=== PATIENT | male | born 1995 | race Asian ===

== ENCOUNTER 2018-03-15 14:24 | Emergency (ER) | payer OTHER ==
[2018-03-15 14:37] VITALS: BP 124/77
[2018-03-15] MEDS ORDERED: predniSONE 20 MG TABLET PO STA (16:05)
[2018-03-15] MEDS ORDERED: cephALEXin 250 MG CAPSULE PO STA (16:06)
--- NOTE | 2018-03-15 16:12 | ED Physician Documentation ---
History of Present Illness - Stated complaint Stated Complaint: L ARM SWELLING/POSS BUG BITE - Chief complaint Chief Complaint: Wound - History obtained from History obtained from: Patient - History of Present Illness Timing: Last night Pain level max: 2 Pain level now: 2 Improved by: nothing Worsened by: nothing - Additonal information Additional information: Patient is a 22-year-old male who presents to the emergency department with swelling to the left forearm since last night. States started as a small reddened area that looked like a bug bite, but is now enlarged in size. Mild pain. No fever. Has surrounding it has not taken anything for this. There is itching present. Review of Systems Constitutional: denies: Fever, Chills Respiratory: denies: Cough GI: denies: Nausea, Vomiting PD PAST MEDICAL HISTORY - Past Medical History Past Medical History: No - Past Surgical History Past Surgical History: No - Present Medications Home Medications: Ambulatory Orders Medication Instructions Recorded Confirmed Cephalexin [Keflex] 500 mg PO Q6H #28 capsule 03/15/18 predniSONE [Prednisone] 40 mg PO DAILY #6 tablet 03/15/18 - Family History Family history: reports: Non contributory - Immunizations Immunizations are current?: Yes Immunizations: TDAP current <10years - POLST Patient has POLST: No PD ED PE NORMAL - Vitals Vital signs reviewed: Yes - General General: Alert and oriented X 3 - HEENT HEENT: Moist mucous membranes - Neck Neck: Supple, no meningeal sign - Derm Derm: Warm and dry - Extremities Extremities: Other (L forearm - swelling, redness to the mid forearm. no fluctuance. blanches easily.) - Neuro Neuro: Alert and oriented X 3 Results - Vitals Vitals: Vital Signs - 24 hr 03/15/18 14:31 Temperature 36.2 C L Heart Rate 50 L Respiratory 16 Rate Blood Pressure 124/77 O2 Saturation 97 Oxygen O2 Source Room air PD MEDICAL DECISION MAKING - ED course Complexity details: considered differential, d/w patient ED course: Patient is a 22-year-old male who presents to the emergency department with possible localized allergic reaction versus cellulitis of left forearm. Will place on antibiotics and steroids and see how he progresses. I think this is more likely allergic, but we will cover for infection as well. Tetanus is up-to -date. No evidence of abscess. Does not use any IV or subcutaneous drugs. Patient counseled regarding signs and symptoms for which I believe and urgent re -evaluation would be necessary. Patient with good understanding of and agreement to plan and is comfortable going home at this time This document was made in part using voice recognition software. While efforts are made to proofread this document, sound alike and grammatical errors may occur. - Sepsis Event Vital Signs: Vital Signs - 24 hr 03/15/18 14:31 Temperature 36.2 C L Heart Rate 50 L Respiratory 16 Rate Blood Pressure 124/77 O2 Saturation 97 Oxygen O2 Source Room air Departure - Departure Disposition: 01 Home, Self Care Clinical Impression: Allergic reaction Qualifiers: Encounter type: initial encounter Qualified Code(s): T78.40XA - Allergy, unspecified, initial encounter Cellulitis Qualifiers: Site of cellulitis: extremity Site of cellulitis of extremity: upper extremity Laterality: left Qualified Code(s): L03.114 - Cellulitis of left upper limb Condition: Good Instructions: ED Infec Skin Cellulitis, ED Bite Sting Insect Local Allergic React Follow-Up: your,doctor in 3 days for wound check [Other] Prescriptions: Cephalexin [Keflex] 500 mg PO Q6H #28 capsule predniSONE [Prednisone] 40 mg PO DAILY #6 tablet Comments: It is unclear if this represents an infection versus an allergic reaction to a bite. We will treat it with steroids and antibiotics. Return if you worsen. This should improve over the next 24 hours. Discharge Date/Time: 03/15/18 16:18
== END 2018-03-15 16:18 | disposition home or self-care (01) ==
LOC: ED 14:24
DX: T78.40XA Allergy, unspecified, initial encounter (principal); X58.XXXA Exposure to other specified factors, initial encounter; L03.114 Cellulitis of left upper limb
CPT/HCPCS: 99283; A9270; J7512

== ENCOUNTER 2018-06-20 15:32 | Emergency (ER) | payer OTHER ==
[2018-06-20] MEDS ORDERED: ONDANSETRON 4 MG/2 ML VIAL IVP STA (15:58)
[2018-06-20] MEDS ORDERED: SODIUM CHLORIDE 0.9% 1,000 ML IV ONE ×2 (15:58→16:56)
[2018-06-20 16:20] LABS: BASOPHILS % (AUTO) 0.7 %; EOSINOPHILS # (AUTO) 0.4 10^3/uL (0.0-0.7); EOSINOPHILS % (AUTO) 5.4 %; HGB - HEMOGLOBIN 15.7 g/dL (14.0-18.0); LYMPHOCYTES % (AUTO) 30.5 %; MEAN CORPUSCULAR HGB CONC 33.8 g/dL (32.0-36.0); MEAN CORPUSCULAR VOLUME 85.7 fL (80.0-94.0); MEAN PLATELET VOLUME 9.4 fL (7.4-11.4); MONOCYTES # (AUTO) 0.4 10^3/uL (0.0-1.0); MONOCYTES % (AUTO) 5.7 %; NEUTROPHILS # (AUTO) 3.7 10^3/uL (1.5-6.6); NEUTROPHILS % (AUTO) 57.7 %; PLT - PLATELET COUNT 206 10^3/uL (130-450); RED BLOOD COUNT 5.41 10^6/uL (4.70-6.10); RED CELL DISTRIBUTION WIDTH 13.6 % (12.0-15.0); WHITE BLOOD COUNT 6.5 x10^3/uL (4.8-10.8)
[2018-06-20 16:33] LABS: ALBUMIN 4.6 g/dL (3.2-5.5); ALBUMIN/GLOBULIN RATIO 1.6 (1.0-2.2); BILIRUBIN,TOTAL 0.8 mg/dL (0.2-1.0); CALCIUM 9.2 mg/dL (8.5-10.3); CREATININE 0.9 mg/dL (0.6-1.2); TOTAL PROTEIN 7.5 g/dL (6.7-8.2)
[2018-06-20] MEDS ORDERED: FAMOTIDINE 20 MG/50 ML 50 ML IV ONE (16:55)
[2018-06-20] MEDS ORDERED: MAG HYDROX/AL HYDROX/SIMETH 30 ML UDC PO STA ×2 (17:00→17:38)
[2018-06-20] MEDS ORDERED: LIDOCAINE VISCOUS 2% 15 ML UDC MM STA (17:01)
[2018-06-20 17:16] LABS: BILIRUBIN,URINE NEGATIVE (NEGATIVE); GLUCOSE, URINE (UA) NEGATIVE (NEGATIVE); KETONES,URINE (UA) NEGATIVE (NEGATIVE); LEUKOCYTE ESTERASE, URINE NEGATIVE (NEGATIVE); NITRITE,URINE NEGATIVE (NEGATIVE); OCCULT BLOOD,URINE NEGATIVE (NEGATIVE); PH,URINE 7.5 PH (5.0-7.5); PROTEIN,URINE NEGATIVE (NEGATIVE); UROBILINOGEN,URINE 0.2 (NORMAL) E.U./dL (NORMAL)
[2018-06-20 17:22] LABS: CLARITY,URINE CLEAR (CLEAR)
--- NOTE | 2018-06-20 18:10 | ED Physician Documentation ---
PD HPI ABD PAIN - Stated complaint Stated Complaint: AB PX/LIGHTHEADED/MALE - Chief complaint Chief Complaint: Abd Pain - History obtained from History obtained from: Patient - History of Present Illness Timing - onset: Yesterday Location: Epigastric, Periumbilical Associated symptoms: Nausea, Vomiting, Diarrhea. No: Fever Similar symptoms before: Has not had sx before Recently seen: Clinic (He was seen by her urologist 2 days ago and started on Bactrim and tamsulosin for suspected chronic prostatitis.) - Additional information Additional information: The patient is a 23-year-old male who presents with abdominal pain that started yesterday and is worse today. It is in the upper abdomen. He reports associated nausea and vomited soon after arrival in the emergency department. He has had 3 or 4 episodes of diarrhea since onset yesterday. He reports lightheadedness last night. He denies fever or dysuria. He had been referred to a urologist for evaluation of a varicocele. He was seen by the urologist 2 days ago, and was diagnosed with suspected chronic prostatitis for which he was started on Bactrim and tamsulosin. Review of Systems Constitutional: denies: Fever Nose: denies: Congestion Throat: denies: Sore throat Cardiac: denies: Chest pain / pressure Respiratory: denies: Dyspnea, Cough GI: reports: Abdominal Pain, Nausea, Vomiting, Diarrhea : denies: Dysuria Skin: denies: Rash Musculoskeletal: denies: Back pain Neurologic: denies: Headache PD PAST MEDICAL HISTORY - Past Medical History Past Medical History: No Cardiovascular: None Respiratory: None Endocrine/Autoimmune: None GI: None - Past Surgical History Past Surgical History: No - Present Medications Home Medications: Ambulatory Orders Medication Instructions Recorded Confirmed Promethazine [Phenergan] 25 - 50 mg PO Q6H PRN #10 tab 06/20/18 Tamsulosin [Flomax] 1 tab PO DAILY 06/20/18 06/20/18 raNITIdine [Zantac] 150 mg PO BID #30 tablet 06/20/18 - Allergies Allergies/Adverse Reactions: Allergies Allergy/AdvReac Type Severity Reaction Status Date / Time No Known Drug Allergies Allergy Verified 06/20/18 15:41 - Social History Does the pt smoke?: No Smoking Status: Never smoker Does the pt drink ETOH?: No Does the pt have substance abuse?: No - Immunizations Immunizations are current?: Yes Immunizations: TDAP current <10years - POLST Patient has POLST: No PD ED PE NORMAL - Vitals Vital signs reviewed: Yes (normal) - General General: Alert and oriented X 3, Well developed/nourished - HEENT HEENT: Atraumatic, Moist mucous membranes, Pharynx benign - Neck Neck: Supple, no meningeal sign, No adenopathy - Cardiac Cardiac: RRR, No murmur - Respiratory Respiratory: No respiratory distress, Clear bilaterally - Abdomen Abdomen: Soft, Non distended, No organomegaly, Other (Mild tenderness to palpation in the left upper quadrant and epigastric region, without rebound tenderness or guarding.) - Back Back: No CVA TTP - Derm Derm: No rash - Extremities Extremities: No edema, No calf tenderness / cord - Neuro Neuro: Alert and oriented X 3, No motor deficit, No sensory deficit Results - Vitals Vitals: Oxygen O2 Source Room air - Labs Labs: Laboratory Tests 06/20/18 06/20/18 06/20/18 16:04 16:04 16:50 WBC 6.5 RBC 5.41 Hgb 15.7 Hct 46.3 MCV 85.7 MCH 29.0 MCHC 33.8 RDW 13.6 Plt Count 206 MPV 9.4 Neut # (Auto) 3.7 Lymph # (Auto) 2.0 [place] # (Auto) 0.4 Eos # (Auto) 0.4 Baso # (Auto) 0.0 Absolute Nucleated RBC 0.01 Nucleated RBC % 0.1 Sodium 137 Potassium 3.5 Chloride 104 Carbon Dioxide 29 Anion Gap 4.0 L BUN 14 Creatinine 0.9 Estimated GFR (MDRD) 106 Glucose 88 Calcium 9.2 Total Bilirubin 0.8 AST 19 ALT 17 Alkaline Phosphatase 49 Total Protein 7.5 Albumin 4.6 Globulin 2.9 Albumin/Globulin Ratio 1.6 Lipase 34 Urine Color YELLOW Urine Clarity CLEAR Urine pH 7.5 Ur Specific [place] 1.015 Urine Protein NEGATIVE Urine Glucose (UA) NEGATIVE Urine Ketones NEGATIVE Urine Occult Blood NEGATIVE Urine Nitrite NEGATIVE Urine Bilirubin NEGATIVE Urine Urobilinogen 0.2 (NORMAL) Ur Leukocyte Esterase NEGATIVE Ur Microscopic Review NOT INDICATED Urine Culture Comments NOT INDICATED PD MEDICAL DECISION MAKING - ED course Complexity details: reviewed results, re-evaluated patient, considered differential, d/w patient ED course: The patient's presentation is most suggestive of peptic ulcer disease versus gastroenteritis. His CBC, chemistry panel, and urinalysis are negative. His presentation does not suggest pancreatitis, biliary colic, or an acute surgical abdomen. Treatment in the emergency department included administration of normal saline 2 L IV, Zofran 4 mg IV, GI cocktail orally, and famotidine 20 mg IV. His symptoms resolved with the above treatment, and reexamination reveals a benign abdomen. He is being discharged with a prescriptions for Ranitidine and for Phenergan. I discussed with him and his companions the diagnosis, symptomatic treatment and outpatient follow-up, as well as potentially worrisome signs or symptoms that should prompt reevaluation in the emergency department. - Sepsis Event Vital Signs: Oxygen O2 Source Room air Departure - Departure Disposition: Home, Self Care Clinical Impression: Gastritis Qualifiers: Gastritis type: unspecified gastritis Chronicity: acute Gastritis bleeding: without bleeding Qualified Code(s): K29.00 - Acute gastritis without bleeding Condition: Stable Instructions: ED PUD Vs Gastritis Follow-Up: ANALI BRIONES MD [Primary Care Provider] - Prescriptions: Promethazine [Phenergan] 25 - 50 mg PO Q6H PRN #10 tab PRN Reason: Nausea / Vomiting raNITIdine [Zantac] 150 mg PO BID #30 tablet Comments: Minimize coffee, mary, alcohol, and greasy or spicy foods. Take ranitidine twice daily as prescribed. You can use Phenergan as prescribed if needed for nausea. Follow up with your primary physician within 1-2 weeks. Call to schedule an appointment. Return to the emergency department if you develop increasing abdominal pain, persistent vomiting, or otherwise worsening symptoms. Discharge Date/Time: 06/20/18 18:22
[2018-06-20 18:20] VITALS: BP 120/78
== END 2018-06-20 18:22 | disposition home or self-care (01) ==
LOC: ED 15:32
DX: K29.00 Acute gastritis without bleeding (principal)
CPT/HCPCS: 36415; 80053; 81003; 83690; 85025; 96361; 96365; 96375; 99283; 99284; A9270; 81001; 87086

== ENCOUNTER 2021-05-08 10:15 | Emergency (ER) | payer OTHER ==
[2021-05-08 10:51] VITALS: BP 119/70
--- NOTE | 2021-05-08 11:40 | ED Physician Documentation ---
History of Present Illness - Stated complaint Stated Complaint: CONGESTION/COUGH - Chief complaint Chief Complaint: Heent - History obtained from History obtained from: Patient - Additonal information Additional information: Previously healthy 25-year-old gentleman has been sick for about 3 days with body aches, cough, runny nose, myalgias and fatigue. No measured fevers. Family is sick with similar symptoms. He is fully immunized against Covid. Review of Systems Ten Systems: 10 systems reviewed and negative Constitutional: reports: Chills, Myalgias, Fatigue Nose: reports: Rhinorrhea / runny nose Cardiac: denies: Chest pain / pressure, Palpitations Respiratory: reports: Cough. denies: Dyspnea PD PAST MEDICAL HISTORY - Past Medical History Cardiovascular: None Respiratory: None Endocrine/Autoimmune: None GI: None - Past Surgical History Past Surgical History: No - Present Medications Home Medications: Ambulatory Orders Medication Instructions Recorded Confirmed No Known Home Medications 05/08/21 05/08/21 - Allergies Allergies/Adverse Reactions: Allergies Allergy/AdvReac Type Severity Reaction Status Date / Time No Known Drug Allergies Allergy Verified 05/08/21 10:51 - Social History Does the pt smoke?: No Smoking Status: Never smoker Does the pt drink ETOH?: No Does the pt have substance abuse?: No - Immunizations Immunizations are current?: Yes Immunizations: TDAP current <10years - POLST Patient has POLST: No PD ED PE NORMAL - Vitals Vital signs reviewed: Yes - General General: Alert and oriented X 3, No acute distress - HEENT HEENT: Ears normal, Pharynx benign - Neck Neck: Supple, no meningeal sign, No bony TTP - Cardiac Cardiac: RRR, No murmur - Respiratory Respiratory: No respiratory distress, Clear bilaterally - Abdomen Abdomen: Non tender - Back Back: No CVA TTP, No spinal TTP - Extremities Extremities: No edema, No calf tenderness / cord - Neuro Neuro: Alert and oriented X 3, Normal speech Results - Vitals Vitals: Vital Signs - 24 hr 05/08/21 10:48 Temperature 36.9 C Heart Rate 73 Respiratory 16 Rate Blood Pressure 119/70 O2 Saturation 100 Oxygen O2 Source Room air PD MEDICAL DECISION MAKING - ED course ED course: 25-year-old gentleman presents with classic viral syndrome. No evidence of bacterial infection. No specific therapy is necessary but discussed with him that he would need to self quarantine until Covid testing is done to make sure that he does not have a breakthrough infection. Departure - Departure Disposition: 01 Home, Self Care Clinical Impression: Viral syndrome Condition: Good Record reviewed to determine appropriate education?: Yes Instructions: ED Viral Syndrome Comments: Tylenol and ibuprofen as needed for the aches and pains. Return for new or worsening symptoms. You have a Covid test pending. You need to self quarantine until the result is done and negative. Do not leave your house. Do not get near anybody. The results should be done in 48 to 72 hours. We will call with a positive result, the fastest way to get a negative result for confirmation though is to go to the hospital website at [email or web address], click on the my [employer] tab and sign up for the patient portal. If any friends or family get sick and would like to have a Covid test done, but do not have signs or symptoms that would necessitate being hospitalized, we encourage testing through our coronavirus swabbing station, call [phone] to schedule an appointment. Forms: Activity restrictions
== END 2021-05-08 11:52 | disposition home or self-care (01) ==
LOC: ED 10:15
DX: B34.9 Viral infection, unspecified (principal); Z20.822 Contact with and (suspected) exposure to COVID-19
CPT/HCPCS: 99282; 99283

== ENCOUNTER 2021-11-03 14:11 | Emergency (ER) | payer OTHER ==
[2021-11-03 14:35] LABS: BASOPHILS # (AUTO) 0.1 10^3/uL (0.0-0.1); EOSINOPHILS # (AUTO) 0.1 10^3/uL (0.0-0.7); EOSINOPHILS % (AUTO) 1.9 %; HCT - HEMATOCRIT 45.7 % (42.0-52.0); HGB - HEMOGLOBIN 15.4 g/dL (14.0-18.0); LYMPHOCYTES # (AUTO) 1.7 10^3/uL (1.5-3.5); LYMPHOCYTES % (AUTO) 29.8 %; MEAN CORPUSCULAR HEMOGLOBIN 28.8 pg (27.0-31.0); MEAN CORPUSCULAR HGB CONC 33.7 g/dL (32.0-36.0); MEAN CORPUSCULAR VOLUME 85.4 fL (80.0-94.0); MEAN PLATELET VOLUME 10.8 fL (7.4-11.4); MONOCYTES # (AUTO) 0.4 10^3/uL (0.0-1.0); MONOCYTES % (AUTO) 6.6 %; NEUTROPHILS # (AUTO) 3.5 10^3/uL (1.5-6.6); NEUTROPHILS % (AUTO) 60.5 %; PLT - PLATELET COUNT 207 10^3/uL (130-450); RED BLOOD COUNT 5.35 10^6/uL (4.70-6.10); RED CELL DISTRIBUTION WIDTH 13.3 % (12.0-15.0); WHITE BLOOD COUNT 5.7 x10^3/uL (4.8-10.8)
[2021-11-03 14:50] LABS: ALBUMIN 4.5 g/dL (3.2-5.5); ALBUMIN/GLOBULIN RATIO 1.7 (1.0-2.2); BILIRUBIN,TOTAL 0.7 mg/dL (0.2-1.0); CALCIUM 9.4 mg/dL (8.5-10.3); CREATININE 0.9 mg/dL (0.6-1.2); POTASSIUM 3.8 mmol/L (3.5-5.0); TOTAL PROTEIN 7.1 g/dL (6.7-8.2)
--- NOTE | 2021-11-03 15:10 | XRAY Report ---
PROCEDURE: Chest 1 View X-Ray INDICATIONS: Chest pain TECHNIQUE: One view of the chest was acquired. COMPARISON: None FINDINGS: Surgical changes and devices: None. Lungs and pleura: No pleural effusions or pneumothorax. Lungs are clear. Mediastinum: Mediastinal contours appear normal. Heart size is normal. Bones and chest wall: No suspicious bony lesions. Overlying soft tissues appear unremarkable. IMPRESSION: No acute cardiopulmonary disease process. Reviewed by: Jany Doran MD, PhD on 11/03/2021 3:08 PM [facility] [place] Approved by: Jany Doran MD, PhD on 11/03/2021 3:08 PM [facility] [place] Station ID: [id number]
--- NOTE | 2021-11-03 15:55 | ED Physician Documentation ---
PD HPI CHEST PAIN - Stated complaint Stated Complaint: CHEST PX/LIGHT HEADED - Chief complaint Chief Complaint: Cardiac - History obtained from History obtained from: Patient - Additional information Additional information: Previously healthy 26-year-old gentleman who is active in the [employer]. No family history of heart disease. He has chronic recurrent chest pain. He says for last 3 years or so maybe once a month he will have a day where it feels like someone sitting on his chest. There is no particular pattern to this. He has been worked up for a GI cause with upper and lower endoscopies which were noncontributory. There is no exertional component to this. Review of Systems Constitutional: reports: Reviewed and negative Ears: reports: Reviewed and negative Nose: reports: Reviewed and negative Throat: reports: Reviewed and negative Cardiac: reports: Reviewed and negative PD PAST MEDICAL HISTORY - Past Medical History Cardiovascular: None Respiratory: None Endocrine/Autoimmune: None GI: None - Past Surgical History Past Surgical History: No - Present Medications Home Medications: Ambulatory Orders Medication Instructions Recorded Confirmed No Known Home Medications 05/08/21 05/08/21 - Allergies Allergies/Adverse Reactions: Allergies Allergy/AdvReac Type Severity Reaction Status Date / Time No Known Drug Allergies Allergy Verified 05/08/21 10:51 - Social History Does the pt smoke?: No Smoking Status: Never smoker Does the pt drink ETOH?: No Does the pt have substance abuse?: No - Immunizations Immunizations are current?: Yes Immunizations: TDAP current <10years - POLST Patient has POLST: No PD ED PE NORMAL - Vitals Vital signs reviewed: Yes - General General: Alert and oriented X 3, No acute distress - HEENT HEENT: PERRL, EOMI - Neck Neck: Supple, no meningeal sign, No bony TTP - Cardiac Cardiac: RRR, No murmur, Other (Has mild pectus excavatum, nontender chest to though. He does state that it hurts if he stretches his shoulders backwards.) - Respiratory Respiratory: No respiratory distress, Clear bilaterally - Abdomen Abdomen: Non tender - Derm Derm: Normal color, Warm and dry - Neuro Neuro: Alert and oriented X 3, Normal speech Results - Vitals Vitals: Vital Signs - 24 hr 11/03/21 14:17 Temperature 36.3 C L Heart Rate 94 Respiratory 20 Rate Blood Pressure 128/77 O2 Saturation 100 Oxygen O2 Source Room air - EKG (time done) 1414 Rate: Rate (enter#) (98) Rhythm: NSR Mark Center: Normal Intervals: Normal [place] QRS: Normal Ischemia: Normal ST segments - Labs Labs: Laboratory Tests 11/03/21 11/03/21 11/03/21 14:30 14:30 14:30 WBC 5.7 RBC 5.35 Hgb 15.4 Hct 45.7 MCV 85.4 MCH 28.8 MCHC 33.7 RDW 13.3 Plt Count 207 MPV 10.8 Neut # (Auto) 3.5 Lymph # (Auto) 1.7 [place] # (Auto) 0.4 Eos # (Auto) 0.1 Baso # (Auto) 0.1 Absolute Nucleated RBC 0.00 Nucleated RBC % 0.0 Sodium 138 Potassium 3.8 Chloride 103 Carbon Dioxide 25 Anion Gap 10.0 BUN 14 Creatinine 0.9 Estimated GFR (MDRD) 103 Glucose 108 H Calcium 9.4 Total Bilirubin 0.7 AST 26 ALT 50 Alkaline Phosphatase 57 Troponin I High Sens 2.5 Total Protein 7.1 Albumin 4.5 Globulin 2.6 Albumin/Globulin Ratio 1.7 Lipase 29 PD MEDICAL DECISION MAKING - ED course ED course: Heart score 0, suspect this is chest wall pain perhaps related to mild pectus excavatum. Departure - Departure Disposition: 01 Home, Self Care Clinical Impression: Chest wall pain, Pectus excavatum Condition: Good Record reviewed to determine appropriate education?: Yes Instructions: ED Strain Chest Wall Comments: Ibuprofen as needed per package instructions for pain. Gentle stretching and heat as discussed. [place]
[2021-11-03 16:00] VITALS: BP 122/86
== END 2021-11-03 16:07 | disposition home or self-care (01) ==
LOC: ED 14:11
DX: R07.89 Other chest pain (principal); Q67.6 Pectus excavatum
CPT/HCPCS: 36415; 80053; 83690; 84484; 85025; 93005; 99282; 99284

== ENCOUNTER 2021-12-10 21:49 | Emergency (ER) | payer OTHER ==
[2021-12-10 22:03] VITALS: BP 120/79
[2021-12-10] MEDS ORDERED: PROPARACAINE 0.5% OPHTH DROPS 15 ML RIGHTEYE STA (22:15)
[2021-12-10] MEDS ORDERED: POLYMYXIN B/TRIMETH OPHTH DROPS RIGHTEYE STA (22:27)
[2021-12-10] MEDS ORDERED: HYDROcod/ACETAM 5/325 MG TABLET PO STA (22:28)
--- NOTE | 2021-12-10 22:30 | ED Physician Documentation ---
PD HPI OPHTHO - Stated complaint Stated Complaint: EYE PX - Chief complaint Chief Complaint: Heent - History obtained from History obtained from: Patient - History of Present Illness Location: Right Quality / character: Sharp Associated symptoms: Tearing, Photophobia Contributing factors: No: Exposed to conjunctivitis, UV light (welding etc), Chemical exposure, acid, Chemical exposure, base, Penetrating trauma - Additional information Additional information: Patient presenting for evaluation of the right a pain after accidentally hitting himself in the eye with a paperhanger assistant hook just prior to arrival. He does not wear contacts or glasses. His eye is now sensitive to the light and has been tearing.He did try irrigating his eye with water but this did not make it feel better.He denies pain elsewhere. Review of Systems Constitutional: denies: Fever Eyes: reports: Photophobia Ears: denies: Tinnitus/ringing Nose: denies: Congestion Throat: denies: Dental pain / toothache Cardiac: denies: Chest pain / pressure Respiratory: denies: Dyspnea GI: denies: Abdominal Pain Neurologic: denies: Headache PD PAST MEDICAL HISTORY - Past Medical History Cardiovascular: None Respiratory: None Endocrine/Autoimmune: None GI: None - Past Surgical History Past Surgical History: No - Present Medications Home Medications: Ambulatory Orders Medication Instructions Recorded Confirmed HYDROcod/ACETAM 5/325 [[place] 5/325] 1 tab PO Q6H PRN 2 Days #8 tablet 12/10/21 Polymyxin B/Trimeth Ophth Drop 1 drops RIGHTEYE Q6H 5 Days #1 12/10/21 [Polytrim Ophth Drops] bottle Quetiapine Fumarate [Seroquel] 50 mg PO DAILY 12/10/21 12/10/21 lamoTRIgine [Lamictal] 150 mg PO DAILY 12/10/21 12/10/21 - Allergies Allergies/Adverse Reactions: Allergies Allergy/AdvReac Type Severity Reaction Status Date / Time No Known Drug Allergies Allergy Verified 12/10/21 22:03 - Social History Does the pt smoke?: No Smoking Status: Never smoker Does the pt drink ETOH?: No Does the pt have substance abuse?: No - Immunizations Immunizations are current?: Yes Immunizations: TDAP current <10years - POLST Patient has POLST: No PD ED PE NORMAL - General General: Alert and oriented X 3, No acute distress, Well developed/nourished - HEENT HEENT: Atraumatic, PERRL, EOMI - Respiratory Respiratory: No respiratory distress - Derm Derm: Normal color - Neuro Neuro: Normal speech - Psych Psych: Normal mood, Normal affect PD ED PE EXPANDED - Eyes Eyes: PERRL, EOMI, Corneal abrasion, Fluorescein uptake (Area of linear uptake to 6 o'clock position of right cornea), Anterior chambers clear. No: Eyelid injury, Eyelid swelling, Eyelid erythema, Conj/sclera FB, Subconj hemorrhage, Corneal FB, Hyphema Results - Vitals Vitals: Vital Signs - 24 hr 12/10/21 21:55 Temperature 36.5 C Heart Rate 68 Respiratory 14 Rate Blood Pressure 120/79 O2 Saturation 99 Oxygen O2 Source Room air PD MEDICAL DECISION MAKING - ED course ED course: Patient presenting for evaluation of right eye pain. Visual acuity intact and no signs of globe rupture.No signs of preseptal or septal cellulitis. Exam demonstrates a linear corneal abrasion Which is consistent with the mechanism of injury. Pain medication and antibiotic drops were prescribed and patient was instructed to follow-up with an senior software engineer. He was also advised on return precautions. Departure - Departure Disposition: 01 Home, Self Care Clinical Impression: Corneal abrasion, right Qualifiers: Encounter type: initial encounter Qualified Code(s): S05.01XA - Injury of conjunctiva and corneal abrasion without foreign body, right eye, initial encounter Condition: Stable Instructions: ED Eye Injury Corneal Abrasion Prescriptions: HYDROcod/ACETAM 5/325 [[place] 5/325] 1 tab PO Q6H PRN 2 Days #8 tablet PRN Reason: Pain Polymyxin B/Trimeth Ophth Drop [Polytrim Ophth Drops] 1 drops RIGHTEYE Q6H 5 Days #1 bottle Comments: You have a scratch on your cornea. Please continue with antibiotic drops as prescribed.You may use the pain medication as needed Or [id number] Motrin or Tylenol. Please follow-up with eye doctor in 3 to 5 days.Return to emergency department with any worsening such as changes in vision, swelling, redness, abnormal discharge, worsening pain. Discharge Date/Time: 12/10/21 22:41
== END 2021-12-10 22:41 | disposition home or self-care (01) ==
LOC: ED 21:49
DX: S05.01XA Injury of conjunctiva and corneal abrasion without foreign body, right eye, initial encounter (principal); W20.8XXA Other cause of strike by thrown, projected or falling object, initial encounter
CPT/HCPCS: 99282; A9270; J3490

== ENCOUNTER 2022-01-09 20:31 | Emergency (ER) | payer OTHER ==
[2022-01-09] MEDS ORDERED: LIDOCAINE PATCH 5% TOP STA (21:32)
[2022-01-09 21:47] LABS: BASOPHILS # (AUTO) 0.1 10^3/uL (0.0-0.1); EOSINOPHILS # (AUTO) 0.4 10^3/uL (0.0-0.7); EOSINOPHILS % (AUTO) 6.3 %; HCT - HEMATOCRIT 47.3 % (42.0-52.0); LYMPHOCYTES # (AUTO) 1.9 10^3/uL (1.5-3.5); LYMPHOCYTES % (AUTO) 27.4 %; MEAN CORPUSCULAR HEMOGLOBIN 28.8 pg (27.0-31.0); MEAN CORPUSCULAR HGB CONC 33.8 g/dL (32.0-36.0); MEAN CORPUSCULAR VOLUME 85.2 fL (80.0-94.0); MEAN PLATELET VOLUME 10.8 fL (7.4-11.4); MONOCYTES # (AUTO) 0.5 10^3/uL (0.0-1.0); NEUTROPHILS % (AUTO) 58.2 %; PLT - PLATELET COUNT 232 10^3/uL (130-450); RED BLOOD COUNT 5.55 10^6/uL (4.70-6.10); RED CELL DISTRIBUTION WIDTH 13.4 % (12.0-15.0); WHITE BLOOD COUNT 6.9 x10^3/uL (4.8-10.8)
[2022-01-09 22:03] LABS: ALBUMIN 4.9 g/dL (3.2-5.5); ALBUMIN/GLOBULIN RATIO 1.8 (1.0-2.2); BILIRUBIN,TOTAL 0.5 mg/dL (0.2-1.0); CALCIUM 9.2 mg/dL (8.5-10.3); CREATININE 0.8 mg/dL (0.6-1.2); POTASSIUM 3.9 mmol/L (3.5-5.0); TOTAL PROTEIN 7.7 g/dL (6.7-8.2)
--- NOTE | 2022-01-09 22:44 | XRAY Report ---
PROCEDURE: Chest 1 View X-Ray INDICATIONS: L CP TECHNIQUE: One view of the chest was acquired. COMPARISON: 11/03/2021 FINDINGS: Surgical changes and devices: None. Lungs and pleura: No pleural effusions or pneumothorax. Lungs are clear. Mediastinum: Mediastinal contours appear normal. Heart size is normal. Bones and chest wall: No suspicious bony lesions. Overlying soft tissues appear unremarkable. IMPRESSION: 1. No acute cardiopulmonary disease. Reviewed by: Hammad Trevino MD on 01/09/2022 10:43 PM PDT Approved by: Hammad Trevino MD on 01/09/2022 10:43 PM PDT Station ID: [id number]
--- NOTE | 2022-01-09 22:58 | ED Physician Documentation ---
History of Present Illness - Stated complaint Stated Complaint: BODY PX/CHILLS - Chief complaint Chief Complaint: General - History obtained from History obtained from: Patient - Additonal information Additional information: Patient with no significant past medical history presenting for evaluation of left-sided chest pain at that has been present intermittently for 3 days been more constant since yesterday. Of last week reports having low back pain and his had arranged for him to have a massage. While laying supine on the massage table and having his shoulders rubbed he reported feeling Cold sensation over his chest.He says he has a sharp pain to the left lower ribs that feels like somebody is poking him. It is worse when he hunches over Or takes a deep breath. He denies a history of PE or DVT. No history of early coronary artery disease in the family.Denies history of dissection in the family.No recent travel or immobilization. He denies fever, headache, visual disturbances, abdominal pain, nausea, vomiting, diarrhea, numbness or tingling.He tried Motrin earlier for his pain without improvement. Review of Systems Constitutional: denies: Fever Nose: denies: Congestion Cardiac: reports: Chest pain / pressure. denies: Palpitations Respiratory: denies: Dyspnea, Cough GI: denies: Abdominal Pain, Nausea, Vomiting : denies: Dysuria Skin: denies: Rash Musculoskeletal: reports: Back pain (Low back pain, resolved). denies: Neck pain Neurologic: denies: Syncope, Headache PD PAST MEDICAL HISTORY - Past Medical History Past Medical History: Yes Cardiovascular: None Respiratory: None Neuro: None Endocrine/Autoimmune: None GI: None : None HEENT: None Psych: Bipolar disorder Musculoskeletal: None Derm: None - Past Surgical History Past Surgical History: No - Present Medications Home Medications: Ambulatory Orders Medication Instructions Recorded Confirmed HYDROcod/ACETAM 5/325 [[place] 5/325] 1 tab PO Q6H PRN 2 Days #8 tablet 12/10/21 Polymyxin B/Trimeth Ophth Drop 1 drops RIGHTEYE Q6H 5 Days #1 12/10/21 [Polytrim Ophth Drops] bottle Quetiapine Fumarate [Seroquel] 50 mg PO DAILY 12/10/21 12/10/21 lamoTRIgine [Lamictal] 150 mg PO DAILY 12/10/21 12/10/21 Ibuprofen [Motrin] 800 mg PO Q8H PRN #30 tablet 01/09/22 Lidocaine Patch 5% [Lidoderm Patch] 1 patch TOP DAILY PRN #10 patch 01/09/22 - Allergies Allergies/Adverse Reactions: Allergies Allergy/AdvReac Type Severity Reaction Status Date / Time No Known Drug Allergies Allergy Verified 01/09/22 20:47 - Social History Does the pt smoke?: No Smoking Status: Never smoker Does the pt drink ETOH?: No Does the pt have substance abuse?: No - Immunizations Immunizations are current?: Yes Immunizations: TDAP current <10years - POLST Patient has POLST: No PD ED PE NORMAL - General General: Alert and oriented X 3, No acute distress, Well developed/nourished - HEENT HEENT: Atraumatic, Moist mucous membranes - Neck Neck: Supple, no meningeal sign, No bony TTP - Cardiac Cardiac: RRR, No murmur, Strong equal pulses, Other (Left-sided chest wall tenderness to palpation with no crepitus, deformity or erythema) - Respiratory Respiratory: No respiratory distress, Clear bilaterally - Abdomen Abdomen: Normal bowel sounds, Soft, Non tender - Back Back: No CVA TTP, No spinal TTP - Derm Derm: Normal color, Warm and dry - Extremities Extremities: No deformity, No edema - Neuro Neuro: Alert and oriented X 3, No motor deficit, Normal speech - Psych Psych: Normal mood, Normal affect Results - Vitals Vitals: Vital Signs - 24 hr 01/09/22 01/09/22 01/09/22 20:43 21:08 22:43 Temperature 36.3 C L Heart Rate 90 95 71 Respiratory 17 25 H 19 Rate Blood Pressure 134/80 H 129/81 H 95/80 O2 Saturation 100 100 99 01/09/22 01/09/22 23:03 23:08 Temperature 36.4 C L Heart Rate 78 71 Respiratory 16 16 Rate Blood Pressure 113/77 115/68 O2 Saturation 98 99 Oxygen O2 Source Room air - EKG (time done) 2043 Rate: Rate (enter#) (88) Rhythm: NSR [place]: Normal Ischemia: No: ST elevation c/w ischemia Computer interpretation: Agree with computer - Labs Labs: Laboratory Tests 01/09/22 01/09/22 01/09/22 21:42 21:42 21:42 WBC 6.9 RBC 5.55 Hgb 16.0 Hct 47.3 MCV 85.2 MCH 28.8 MCHC 33.8 RDW 13.4 Plt Count 232 MPV 10.8 Neut # (Auto) 4.0 Lymph # (Auto) 1.9 [place] # (Auto) 0.5 Eos # (Auto) 0.4 Baso # (Auto) 0.1 Absolute Nucleated RBC 0.00 Nucleated RBC % 0.0 Sodium 139 Potassium 3.9 Chloride 101 Carbon Dioxide 27 Anion Gap 11.0 BUN 12 Creatinine 0.8 Estimated GFR (MDRD) 118 Glucose 93 Calcium 9.2 Total Bilirubin 0.5 AST 46 H ALT 101 H Alkaline Phosphatase 60 Troponin I High Sens < 2.3 L Total Protein 7.7 Albumin 4.9 Globulin 2.8 Albumin/Globulin Ratio 1.8 PD MEDICAL DECISION MAKING - ED course Complexity details: reviewed results, d/w patient ED course: Patient is a previously healthy 26-year-old male presenting for evaluation of left-sided chest pain. Vital signs are reassuring and based on his history he is PERC negative. Very low suspicion for ACS given his age and lack of risk factors. EKG without signs of acute ischemic changesAnd troponin is negative. Do not think he needs repeat troponin as his symptoms have been ongoing for more than half a day.Doubt aortic dissection. Chest x-ray is reassuring with no signs of pneumothorax.Symptoms are likely musculoskeletal in etiology given worsening with certain positions. Discussed supportive care with patient. He is aware of need for follow-up with his primary care doctor as well as aware of strict return precautions. Departure - Departure Disposition: 01 Home, Self Care Clinical Impression: Chest pain Condition: Stable Instructions: ED Chest Pain Atypical Unkn Cause Prescriptions: Lidocaine Patch 5% [Lidoderm Patch] 1 patch TOP DAILY PRN #10 patch PRN Reason: pain Ibuprofen [Motrin] 800 mg PO Q8H PRN #30 tablet PRN Reason: PAIN &/OR FEVER Comments: You were evaluated for pain in your chest. At this time the exact cause of your symptoms is unclear but does not appear to be life-threatening. Your blood tests including a marker to look for heart attack was normal. Your x-ray also did not show any abnormalities.Your EKG did not show an irregular rhythm. Your pain could be related to inflammation in the chest wall related to the muscles, Cartilage and ligaments. You can try Motrin as needed for pain and lidocaine patches. You should also have close follow-up with your primary care doctor. If your Symptoms change or worsen (such as Worsening chest pain or chest pain in a new area, and worsening trouble breathing) or you feel new symptoms, please return to the emergency department for another evaluation. Prescriptions for Motrin and lidocaine patches were sent to the [facility] pharmacy in [place]. Discharge Date/Time: 01/09/22 23:13
[2022-01-09 23:09] VITALS: BP 115/68
== END 2022-01-09 23:13 | disposition home or self-care (01) ==
LOC: ED 20:31
DX: R07.9 Chest pain, unspecified (principal)
CPT/HCPCS: 36415; 71045; 80053; 84484; 85025; 93005; 99284; A9270

== ENCOUNTER 2022-01-18 13:29 | Outpatient (CLI) | payer OTHER | END 2022-01-18 13:30 | disposition home or self-care (01) | LOC: RT 13:29 | DX: R07.9 Chest pain, unspecified (principal); Q67.6 Pectus excavatum | CPT/HCPCS: 94010; 94727; 94729 ==

== ENCOUNTER 2022-04-30 15:37 | Emergency (ER) | payer OTHER ==
[2022-04-30] MEDS ORDERED: HYDROmorphone 1 MG/ML CARPUJECT IVP STA ×2 (16:05→16:36)
[2022-04-30] MEDS ORDERED: KETOROLAC 30 MG/ML VIAL IVP STA (16:06)
[2022-04-30] MEDS ORDERED: SODIUM CHLORIDE 0.9% 1,000 ML IV STA (16:06)
--- NOTE | 2022-04-30 16:08 | ED Physician Documentation ---
PD HPI BACK PAIN - Stated complaint Stated Complaint: RT LOWER BACK PX - Chief complaint Chief Complaint: Back Pain - History obtained from History obtained from: Patient, Family - History of Present Illness Timing - onset: How many days ago (8) Timing - duration: Hours (8) Pain level max: 10 Pain level now: 10 Location: Lower, Right Quality: Pain, Spasm Associated symptoms: No: Fever, Weakness, Numbness, Incontinent of urine, Unable to urinate, Hematuria, Incontinent of stool Worsened by: Movement Contributing factors: Trauma. No: Lifting, Twisting, Anticoagulated, Cancer, IVDA Similar symptoms before: Has not had sx before Recently seen: Not recently seen - Additional information Additional information: Patient is a 26-year-old male who is approximately 3 weeks status post pectus excavatum surgery at [facility] in [place]. He states that today he woke up with a spasm in his right lower back. He took his oxycodone and methocarbamol without relief. Worse with movement, nothing makes it better. No urinary symptoms. No hematuria. Has never had kidney stones. Denies any trauma. No cancer no IV drug use. Not anticoagulated. Has not been doing any lifting or twisting. Review of Systems Constitutional: denies: Fever, Chills Throat: denies: Sore throat Cardiac: denies: Chest pain / pressure, Palpitations Respiratory: denies: Dyspnea, Cough, Wheezing GI: denies: Nausea, Vomiting, Diarrhea, Hematemesis, Bloody / black stool : denies: Dysuria, Frequency, Hesitancy Skin: denies: Rash Musculoskeletal: denies: Neck pain, Back pain Neurologic: denies: Headache PD PAST MEDICAL HISTORY - Past Medical History Past Medical History: Yes Cardiovascular: None Respiratory: None Neuro: None Endocrine/Autoimmune: None GI: None : None HEENT: None Psych: Bipolar disorder Musculoskeletal: None Derm: None - Past Surgical History Past Surgical History: No - Present Medications Home Medications: Ambulatory Orders Medication Instructions Recorded Confirmed Quetiapine Fumarate [Seroquel] 50 mg PO DAILY 12/10/21 12/10/21 lamoTRIgine [Lamictal] 150 mg PO DAILY 12/10/21 12/10/21 Gabapentin [Neurontin] 300 mg PO TID 04/30/22 04/30/22 HYDROmorphone [Dilaudid] 2 mg PO Q4H PRN #10 tablet 04/30/22 methocarbamoL [Methocarbamol] 750 mg PO QID PRN 04/30/22 04/30/22 oxyCODONE ER [OxyCONTIN] 10 mg PO HS 04/30/22 04/30/22 oxyCODONE [Roxicodone] 5 - 10 mg PO Q4HR PRN 04/30/22 04/30/22 - Allergies Allergies/Adverse Reactions: Allergies Allergy/AdvReac Type Severity Reaction Status Date / Time No Known Drug Allergies Allergy Verified 04/30/22 15:56 - Social History Does the pt smoke?: No Smoking Status: Never smoker Does the pt drink ETOH?: No Does the pt have substance abuse?: No - Immunizations Immunizations are current?: Yes Immunizations: TDAP current <10years - POLST Patient has POLST: No PD ED PE NORMAL - Vitals Vital signs reviewed: Yes - General General: Alert and oriented X 3, No acute distress - HEENT HEENT: PERRL, Moist mucous membranes - Neck Neck: Supple, no meningeal sign - Cardiac Cardiac: RRR, Strong equal pulses - Respiratory Respiratory: No respiratory distress, Clear bilaterally - Abdomen Abdomen: Soft, Non distended, Other (Tender to palpation right lower quadrant. No peritoneal signs) - Back Back: No CVA TTP, Other (Tender palpation right paraspinal lower lumbar. No midline tenderness. No step-off or deformity.) - Derm Derm: Warm and dry - Extremities Extremities: No edema, No calf tenderness / cord - Neuro Neuro: Alert and oriented X 3, choir director 2-12 intact, No motor deficit, No sensory deficit, Other (Normal bilateral lower extremity patellar and ankle jerk reflexes. Normal great toe extension bilaterally. no saddle anesthesia) - Psych Psych: Normal mood, Normal affect Results - Vitals Vitals: Vital Signs - 24 hr 04/30/22 04/30/22 04/30/22 15:51 16:22 17:29 Temperature 36.4 C L Heart Rate 108 H 106 H 97 Respiratory 24 20 16 Rate Blood Pressure 146/87 H 122/92 H 120/79 O2 Saturation 100 97 97 Oxygen O2 Source Room air - Labs Labs: Laboratory Tests 04/30/22 04/30/22 04/30/22 16:09 16:09 16:24 WBC 8.5 RBC 4.97 Hgb 14.3 Hct 43.6 MCV 87.7 MCH 28.8 MCHC 32.8 RDW 12.7 Plt Count 348 MPV 9.7 Neut # (Auto) 5.1 Lymph # (Auto) 2.1 [place] # (Auto) 0.8 Eos # (Auto) 0.4 Baso # (Auto) 0.1 Absolute Nucleated RBC 0.00 Nucleated RBC % 0.0 Sodium 138 Potassium 3.9 Chloride 100 L Carbon Dioxide 31 Anion Gap 7.0 BUN 12 Creatinine 0.9 Estimated GFR (MDRD) 103 Glucose 116 H Calcium 9.0 Total Bilirubin 0.4 AST 24 ALT 50 Alkaline Phosphatase 128 H Total Protein 7.3 Albumin 3.9 Globulin 3.4 Albumin/Globulin Ratio 1.1 Lipase 29 Urine Color YELLOW Urine Clarity CLEAR Urine pH 6.0 Ur Specific [place] 1.010 Urine Protein NEGATIVE Urine Glucose (UA) NEGATIVE Urine Ketones NEGATIVE Urine Occult Blood NEGATIVE Urine Nitrite NEGATIVE Urine Bilirubin NEGATIVE Urine Urobilinogen 0.2 (NORMAL) Ur Leukocyte Esterase NEGATIVE Ur Microscopic Review NOT INDICATED Urine Culture Comments NOT INDICATED - Rads (name of study) CT abdomen pelvis Radiology: Final report received, EMP read contemporaneously, See rad report PD MEDICAL DECISION MAKING - ED course Complexity details: reviewed results, re-evaluated patient, considered differential (No cauda equina, no spinal epidural abscess, no fracture, no aortic dissection or evidence of aneursym rupture), d/w patient ED course: 26-year-old male with right low back/right lower abdominal pain. He does have multiple right lower quadrant mesenteric lymph nodes. Possible mesenteric adenitis? Pain well controlled in the emergency department. He has oxycodone and muscle relaxants at home for pain. We will continue supportive care at home. Encourage gentle stretching, heating pads. He does have small pleural effusions from his recent pectus excavatum surgery. No evidence of PE. Patient counseled regarding signs and symptoms for which I believe and urgent re- evaluation would be necessary. Patient with good understanding of and agreement to plan and is comfortable going home at this time This document was made in part using voice recognition software. While efforts are made to proofread this document, sound alike and grammatical errors may occur. IMPRESSION: 1. Multiple right lower quadrant mesenteric lymph nodes which are more notable for number rather than size and likely reactive in etiology. Findings are nonspecific and may represent mesenteric adenitis. The visualized appendix appears normal. 2. Postsurgical changes of the anterior lower chest. Small bilateral pleural effusions with associated compressive atelectasis. 3. No evidence for renal stones or hydronephrosis. Departure - Departure Disposition: 01 Home, Self Care Clinical Impression: Mesenteric adenitis Back pain Qualifiers: Back pain location: low back pain Chronicity: acute Back pain laterality: right Sciatica presence: without sciatica Qualified Code(s): M54.50 - Low back pain, unspecified Condition: Good Instructions: ED Neck Back Pain General, ED Adenitis Mesenteric Follow-Up: ROSARIO SMITH MD [Primary Care Provider] - Within 3 Days Prescriptions: HYDROmorphone [Dilaudid] 2 mg PO Q4H PRN #10 tablet PRN Reason: Abdominal Pain Comments: Please follow-up with your doctor for further care. Return if you worsen. You can use the hydromorphone as needed for breakthrough pain. Your CT scan shows likely mesenteric adenitis, this should resolve on its own within a few days. Your prescriptions were sent to [facility] in [place]. I am prescribing a short course of narcotic pain medication for you. These are potentially dangerous and addictive medications that should be used carefully. These medications may constipate you. Take an [id number] stool softener (docusate) twice daily with plenty of water while taking these medications. If you go 24 hours without a bowel movement, take [id number] miralax, per package instructions. Do not drink or drive while taking these medications. If you received narcotic or sedating medications while in the emergency department, do not drive for 24 hours. Store this medication in a safe, secure place and out of reach of children. It is a violation of federal law to give or sell this medication to another person or to use in a manner other than prescribed. The ED will not refill narcotic prescriptions, including prescriptions lost or stolen. To dispose of unwanted medications: 1. [facility] [address] in [place] has a medication drop box. They accept prescription medications (in pill form) Saturday through Saturday 9:00 a.m. to 5:00 p.m. 2. The [facility] [employer] accepts prescription medications (in pill form only) for disposal year round. Call for more information. 3. Contact the [facility] for the next [facility] sponsored prescription drug collection event. , [phone], or [phone]; Discharge Date/Time: 04/30/22 17:40
[2022-04-30 16:20] LABS: BASOPHILS # (AUTO) 0.1 10^3/uL (0.0-0.1); BASOPHILS % (AUTO) 0.6 %; EOSINOPHILS # (AUTO) 0.4 10^3/uL (0.0-0.7); EOSINOPHILS % (AUTO) 4.5 %; HCT - HEMATOCRIT 43.6 % (42.0-52.0); HGB - HEMOGLOBIN 14.3 g/dL (14.0-18.0); LYMPHOCYTES # (AUTO) 2.1 10^3/uL (1.5-3.5); LYMPHOCYTES % (AUTO) 25.1 %; MEAN CORPUSCULAR HEMOGLOBIN 28.8 pg (27.0-31.0); MEAN CORPUSCULAR HGB CONC 32.8 g/dL (32.0-36.0); MEAN CORPUSCULAR VOLUME 87.7 fL (80.0-94.0); MEAN PLATELET VOLUME 9.7 fL (7.4-11.4); MONOCYTES # (AUTO) 0.8 10^3/uL (0.0-1.0); MONOCYTES % (AUTO) 9.9 %; NEUTROPHILS # (AUTO) 5.1 10^3/uL (1.5-6.6); NEUTROPHILS % (AUTO) 59.5 %; PLT - PLATELET COUNT 348 10^3/uL (130-450); RED BLOOD COUNT 4.97 10^6/uL (4.70-6.10); RED CELL DISTRIBUTION WIDTH 12.7 % (12.0-15.0); WHITE BLOOD COUNT 8.5 x10^3/uL (4.8-10.8)
[2022-04-30 16:25] LABS: ALBUMIN 3.9 g/dL (3.2-5.5); ALBUMIN/GLOBULIN RATIO 1.1 (1.0-2.2); BILIRUBIN,TOTAL 0.4 mg/dL (0.2-1.0); CREATININE 0.9 mg/dL (0.6-1.2); POTASSIUM 3.9 mmol/L (3.5-5.0); TOTAL PROTEIN 7.3 g/dL (6.7-8.2)
[2022-04-30 16:36] LABS: BILIRUBIN,URINE NEGATIVE (NEGATIVE); GLUCOSE, URINE (UA) NEGATIVE (NEGATIVE); KETONES,URINE (UA) NEGATIVE (NEGATIVE); LEUKOCYTE ESTERASE, URINE NEGATIVE (NEGATIVE); NITRITE,URINE NEGATIVE (NEGATIVE); OCCULT BLOOD,URINE NEGATIVE (NEGATIVE); PROTEIN,URINE NEGATIVE (NEGATIVE); UROBILINOGEN,URINE 0.2 (NORMAL) E.U./dL (NORMAL)
[2022-04-30 16:42] LABS: CLARITY,URINE CLEAR (CLEAR)
--- NOTE | 2022-04-30 17:06 | CT Report ---
PROCEDURE: Abdomen/Pelvis WO INDICATIONS: R flank pain, no injury TECHNIQUE: Noncontrast 5 mm thick sections acquired from the diaphragms to the symphysis. 5 mm coronal and sagi ttal reformats were then performed. For radiation dose reduction, the following was used: automated exposure control, adjustment of mA and/or kV according to patient size. COMPARISON: Chest radiograph dated 01/09/2022. FINDINGS: Image quality: Beam hardening/streak artifact from anterior chest surgical hardware limits visualizat ion of the lower chest and upper abdomen. ABDOMEN: Lung bases: Small bilateral pleural effusions with associated compressive atelectasis. Heart size is normal. Surgical hardware projects across the lower chest anteriorly with associated beam hardening /streak artifact which limits visualization of the lower chest and upper abdominal structures. Solid organs: Liver and spleen are normal in size. Gallbladder is unremarkable. Pancreas is normal in contours. No adrenal nodules. Kidneys are normal in size, without hydronephrosis or nephrolithi asis. Peritoneum and bowel: Unenhanced bowel loops demonstrate normal wall thickness and caliber. No free fluid or air. Normal appendix. Nodes and vessels: No retroperitoneal or mesenteric adenopathy by size criteria. Numerous scattered mesenteric lymph nodes are more notable for number rather than size within the right lower quadrant. Aorta and inferior vena cava are normal in caliber. Miscellaneous: No ventral hernias. PELVIS: Genitourinary: Bladder wall thickness is normal. Miscellaneous: No inguinal hernias or adenopathy. Bones: No suspicious bony lesions. No acute vertebral body compression fractures. IMPRESSION: 1. Multiple right lower quadrant mesenteric lymph nodes which are more notable for number rather than size and likely reactive in etiology. Findings are nonspecific and may represent mesenteric adenitis . The visualized appendix appears normal. 2. Postsurgical changes of the anterior lower chest. Small bilateral pleural effusions with associate d compressive atelectasis. 3. No evidence for renal stones or hydronephrosis. Reviewed by: Rene Moreau MD on 04/30/2022 5:05 PM PDT Approved by: Rene Moreau MD on 04/30/2022 5:05 PM PDT Station ID: [id number]
[2022-04-30] MEDS ORDERED: HYDROmorphone 2 MG TABLET PO STA (17:19)
[2022-04-30 17:30] VITALS: BP 120/79
== END 2022-04-30 17:40 | disposition home or self-care (01) ==
LOC: ED 15:37
DX: I88.0 Nonspecific mesenteric lymphadenitis (principal)
CPT/HCPCS: 36415; 74176; 80053; 81003; 83690; 85025; 96374; 96375; 99284; A9270; J1170; 81001; 87086

== ENCOUNTER 2022-07-30 13:01 | Outpatient (CLI) | payer OTHER ==
[2022-07-31 08:09] LABS: HSV 2 IGG TYPE SPEC <0.91 index (0.00-0.90)
== END 2022-07-30 13:02 | disposition home or self-care (01) ==
LOC: LAB.N 13:01
PROVIDERS: ATTEND Physician Assistant
DX: K13.0 Diseases of lips (principal)
CPT/HCPCS: 36415; 86695; 86696

== ENCOUNTER 2022-08-23 12:53 | Outpatient (CLI) | payer OTHER ==
--- NOTE | 2022-08-24 16:22 | MRI Report ---
PROCEDURE: HAND WO - RT INDICATIONS: PAIN IN RIGHT HAND TECHNIQUE: Noncontrast coronal T1 spin echo and T2 fast spin echo with fat saturation, axial proton density fast spin echo and T2 fast spin echo with fat saturation, sagittal T1 spin echo and STIR through the hand and fingers. COMPARISON: None. FINDINGS: Image quality: Diagnostic. Patient motion is noted. Bones: The bones are normally aligned, without marrow contusions or fractures. No intra-osseous les ions. Interphalangeal joint(s): The accessory and proper collateral ligaments appear intact. The volar pl ate demonstrates normal morphology. The extensor central slips appear intact on sagittal images. Metacarpophalangeal joint(s): Signal abnormality involving radial sagittal band of fifth MCP joint e xtensor swanson is seen concerning for sprain/low-grade partial thickness tear. Mildly thickened and rad ial collateral ligaments of fifth MCP joint is also seen. The volar plate and adjacent deep transvers e metacarpal ligament is intact. There is also suggestion of low-grade sprain involving ulnar collate ral ligaments of fourth MCP joint. Extensor apparatus: The central slips insert normally on the middle phalangeal base. The conjoint a nd terminal tendons insert normally on the distal phalangeal bases. More proximal portions of the ex tensor tendons also appear normal. Flexor apparatus: The flexor digitorum superficialis and profundus tendons both appear intact. All annular and cruciform pulleys appear intact, without adjacent soft tissue edema. Soft tissues: Visualized muscles demonstrate normal bulk and internal signal. No intramuscular mass es identified. No ganglion cysts. IMPRESSION: 1. Suggestion of low-grade sprain involving radial collateral ligaments of fifth MCP joint. 2. Sprain/low-grade partial thickness tear involving radial sagittal band of fifth MCP joint extensor swasnon. 3. Low-grade sprain involving ulnar collateral ligaments of fourth MCP joint. 4. No marrow edema. No fracture or dislocation. No suspicious bony lesions. 5. Extensor and flexor tendons are grossly intact. Reviewed by: Michelet Cade MD on 08/24/2022 4:21 PM PST Approved by: Michelet Cade MD on 08/24/2022 4:21 PM PST Station ID: [id number]
== END 2022-08-23 12:54 | disposition home or self-care (01) ==
LOC: DI 12:53
DX: S63.656A Sprain of metacarpophalangeal joint of right little finger, initial encounter (principal)